=== PATIENT | female | born 1970 | race Caucasian/White ===

== ENCOUNTER 2017-04-25 11:31 | Emergency (ER) | payer OTHER ==
[~2017-04-25 11:31] MED LIST: ALBUTEROL17 GM INH; BACTRIM DS TABL1 TA1 PO; BROMFED DM COU118 ML PO; CELEBREX PO; CILOXAN5 ML OP; DELTASONE20 MG; DICLOFENAC PO; ERYTHROMYCIN O3.5 G1 OP; FLEXERIL10 MG PO; HORMONE PATCH; HYDROCODON-ACE1 EACH PO; NEURONTIN100 MG PO; NO MEDICATIONS; PHENERGAN25 MG PO; ULTRAM PO; VALIUM10 M1 PO; VIBRAMYCIN100 M1 PO; ZANAFLEX PO; ZITHROMAX PO; ZOVIRAX400 MG PO
[2017-04-25] MEDS ORDERED: SINGULAIR (11:39)
[2017-04-25 12:02] LABS: URINE SOURCE CLEAN CATCH
[2017-04-25 12:11] LABS: URINE APPEARANCE SL CLOUDY; URINE BILIRUBIN NEG (NEG); URINE BLOOD 3+ (NEG); URINE COLOR YELLOW; URINE GLUCOSE NEG (NORM); URINE KETONE NEG (NEG); URINE LEUKOCYTE ESTERASE 3+ (NEG); URINE NITRATE NEG (NEG); URINE PROTEIN 1+ (NEG); URINE UROBILINOGEN 0.2 MG/DL (NORM)
[2017-04-25 12:21] LABS: MICRO INDICATED? YES
[2017-04-25 12:25] LABS: CULTURE INDICATED? YES; URINE BACTERIA 1+ (NEG); URINE RBC 50-100 /[HPF] (0-2); URINE SQUAMOUS EPITHELIAL CELL FEW /[HPF]; URINE WBC INNUM /[HPF] (0-5)
== END 2017-04-25 13:15 | disposition home or self-care (01) ==
LOC: SED 11:31
PROVIDERS: Nurse Practitioner
DX: N30.91 Cystitis, unspecified with hematuria (principal); F17.210 Nicotine dependence, cigarettes, uncomplicated; Z90.710 Acquired absence of both cervix and uterus; Z90.49 Acquired absence of other specified parts of digestive tract; Z88.2 Allergy status to sulfonamides; Z88.5 Allergy status to narcotic agent
CPT/HCPCS: 81003; 87086; 87088; 87186; 99283